=== PATIENT | male | born 1995 ===

== ENCOUNTER 2023-02-03 22:42 | Emergency (ER) | payer SELFPAY ==
[2023-02-03 22:46] VITALS: BP 172/116; PULSE 106; RESP 20; TEMP 36.5; O2SAT 100
[2023-02-04 00:40] VITALS: BP 185/120
[2023-02-04 02:51] VITALS: BP 170/109; PULSE 91; RESP 18; TEMP 36.6; O2SAT 100
--- NOTE | 2023-02-04 04:23 | PC.NURSE ---
Pt called for room and was no answer at 0420 and after a thorough search of the waiting room was not found.
== END 2023-02-04 04:23 | disposition left against medical advice (07) ==
LOC: ANHED 02-04 04:29
DX: R51.9 Headache, unspecified (principal)
CPT/HCPCS: 99199